=== PATIENT | female | born 1975 | race Caucasian/White ===

== ENCOUNTER → 2020-11-18 | Outpatient (CLI) | payer OTHER ==
[~2020-11-18] MED LIST: COLACE 100MG C100 MG PO
== END ==
LOC: EXRD 13:03
DX: M25.552 Pain in left hip (principal); M54.5 Low back pain; M47.816 Spondylosis without myelopathy or radiculopathy, lumbar region
CPT/HCPCS: 72110; 73502

== ENCOUNTER → 2021-09-12 | Outpatient (CLI) | payer OTHER | LOC: EXRD 08:10 | DX: R07.89 Other chest pain (principal); Z20.822 Contact with and (suspected) exposure to COVID-19 | CPT/HCPCS: 71046 ==